=== PATIENT | male | born 1945 | race Caucasian/White ===

== ENCOUNTER 2017-01-19 00:13 | Emergency (ER) | payer MEDICARE ==
--- NOTE | ~2017-01-19 | CR195 ---
[facility] A Service of [facility] RADIOLOGY TEXT RESULTS PATIENT: SUDHAKAR GRANT LOCATION: SED : 49 UNIT #: [id number] AGE: [address]: Sudhakar Millan MD SEX: M ORDER DR: [id number] [place] [address] [id number] E MR#: [id number] Acc #: [id number] NAME: SUDHAKAR GRANT : 1945 SEX: M STUDY DATE/TIME: 01/19/2017 00:37 UNIT: SED ROOM: STUDY DESCRIPTION: Neck Soft Tissue Attending Physician: Sudhakar Millan M.D. Ordering Physician: Sudhakar Millan M.D. Primary Care Physician: Shmuel Gresham M.D. MEDICAL IMAGING REPORT This report is preliminary unless electronic signature is present. EXAM Soft tissue neck 01/19/2017 at 00:37 INDICATION Something caught in throat causing him to gag. Symptoms started about 45 minutes ago. FINDINGS AP and lateral soft tissue views of the neck were obtained. Note is made of extensive cervical degenerative disease with spondylolisthesis of C4 on C5. Bilateral carotid atherosclerotic disease is noted as well. Prevertebral soft tissues are normal. There are no radiopaque foreign bodies. The epiglottis is normal. IMPRESSION No radiopaque foreign bodies. The epiglottis is normal. There is extensive cervical degenerative disease and there are bilateral carotid arterial calcifications as well. Dictated by... Germain Macedo Jr., M.D. THIS IS AN ELECTRONICALLY VERIFIED REPORT Germain Macedo Jr., M.D. at 01/19/2017 5:55 AM YISEL/lei TD: 01/19/2017 02:41 JOB #: [id number] MEDICAL IMAGING REPORT [facility] A Service of [facility] RADIOLOGY TEXT RESULTS PATIENT: SUDHAKAR GRANT LOCATION: SED : 49 UNIT #: [id number] AGE: [address]: Sudhakar Millan MD SEX: M ORDER DR: Page 1 of 1
== END 2017-01-19 01:26 | disposition home or self-care (01) ==
LOC: SED 00:13
DX: S27.818A Other injury of esophagus (thoracic part), initial encounter (principal); J44.9 Chronic obstructive pulmonary disease, unspecified; F17.200 Nicotine dependence, unspecified, uncomplicated; Z91.041 Radiographic dye allergy status; X58.XXXA Exposure to other specified factors, initial encounter
CPT/HCPCS: 70360; 99283

== ENCOUNTER → 2017-04-26 | Outpatient (CLI) | payer MEDICARE ==
--- NOTE | ~2017-04-26 | CT57 ---
[facility] A Service [facility] RADIOLOGY TEXT RESULTS PATIENT: SUDHAKAR GRANT LOCATION: [facility] : [birth year] UNIT #: [id number] AGE: [address]: Jaime Almazan MD SEX: M ORDER DR: [id number] [id number] [facility]. [place], [place] [address] [id number] O MR#: [id number] Acc #: [id number] NAME: SUDHAKAR GRANT : 1945 SEX: M STUDY DATE/TIME: 04/26/2017 15:46 UNIT: [facility] ROOM: STUDY DESCRIPTION: CT Chest Wo Cont Attending Physician: Jaime Almazan M.D. Referring Physician: Jaime Almazan M.D. Ordering Physician: Jaime Almazan M.D. Primary Care Physician: Shmuel Gresham M.D. MEDICAL IMAGING REPORT This report is preliminary unless electronic signature is present EXAM Chest CT without contrast. HISTORY Emphysema. Chest tightness, onset 1 day ago. COMPARISON 03/22/2017 TECHNIQUE Axial images were obtained without contrast and evaluated at lung and mediastinal windows. This CT exam was performed with one or more of the following radiation dose reduction techniques: automatic exposure control, adjustment of mA and/or kV according to patient size, and iterative reconstruction. FINDINGS Chest images at mediastinal windows show atherosclerotic disease of the coronaries. The aorta is generally ectatic, but unchanged from the previous examination. The ascending aorta maximum diameter is 4 cm. There is no evidence of mediastinal or hilar adenopathy and there is no evidence of pleural or pericardial fluid. Gallstones are seen in the gallbladder. Lung window imaging shows emphysema. No suspicious masses or infiltrates are seen. IMPRESSION Emphysema. No active disease in the chest. No change in ascending aortic dilatation to a diameter of 4 cm since the recent previous scan. Cholelithiasis noted. Dictated by... [facility] A Service [facility] RADIOLOGY TEXT RESULTS PATIENT: SUDHAKAR GRANT LOCATION: [facility] : 49 UNIT #: [id number] AGE: [address]: Jaime Almazan MD SEX: M ORDER DR: Germain Woodard M.D. THIS IS AN ELECTRONICALLY VERIFIED REPORT Germain Woodard M.D. at 04/28/2017 7:08 AM JD/blanka TD: 04/27/2017 09:23 JOB #: [id number] MEDICAL IMAGING REPORT Page 1 of 1 COPY
== END | disposition home or self-care (01) ==
LOC: CCAT 14:59
DX: R05 Cough (principal); R06.02 Shortness of breath; J43.9 Emphysema, unspecified; K80.20 Calculus of gallbladder without cholecystitis without obstruction
CPT/HCPCS: 71250